=== PATIENT | female | born 1960 | race Caucasian/White ===

== ENCOUNTER 2022-04-25 08:25 | Outpatient (CLI) | payer OTHER | END 2022-04-25 08:26 | disposition home or self-care (01) | LOC: BICRAD 08:25 | PROVIDERS: ATTEND Family Medicine | DX: M79.641 Pain in right hand (principal) ==

== ENCOUNTER 2022-09-07 07:34 | Outpatient (CLI) | payer OTHER | END 2022-09-07 07:35 | disposition home or self-care (01) | LOC: BICULT 07:34 | PROVIDERS: ATTEND Student in an Organized Health Care Education/Training Program | DX: N63.20 Unspecified lump in the left breast, unspecified quadrant (principal); N60.02 Solitary cyst of left breast ==

== ENCOUNTER 2022-09-12 11:03 | Outpatient (CLI) | payer OTHER | END 2022-09-12 11:04 | disposition home or self-care (01) | LOC: BICCT 11:03 | PROVIDERS: ATTEND Family Medicine | DX: I25.10 Atherosclerotic heart disease of native coronary artery without angina pectoris (principal); Z79.899 Other long term (current) drug therapy | CPT/HCPCS: 75571 ==